=== PATIENT | male | born 1985 | race Caucasian/White ===

== ENCOUNTER 2018-07-09 19:36 | Emergency (ER) | payer SELFPAY, OTHER ==
[2018-07-09] MEDS: IBUPROFEN 800 MG TAB PO (20:59)
== END 2018-07-09 22:35 | disposition home or self-care (01) ==
LOC: FTE 19:36
DX: M25.562 Pain in left knee (principal); Z87.891 Personal history of nicotine dependence
CPT/HCPCS: 29505; 73562; 99283-25